=== PATIENT | female | born 1970 | race Two or more races ===

== ENCOUNTER 2018-06-03 12:33 | Emergency (ER) | payer BC, OTHER ==
[~2018-06-03] VITALS: Ht 162.6 cm; Wt 81.0 kg
[~2018-06-03 12:33] MED LIST: ALPR0.25 PO; CHOL200052 PO; METF500T17 PO; SIMV40TA PO
[2018-06-03] MEDS ORDERED: MORPHINE SULFATE 4 MG/ML, 1ML ONE (13:29)
[2018-06-03] MEDS ORDERED: ONDANSETRON ODT 4 MG ONE (13:29)
[2018-06-03] MEDS ORDERED: MORPHINE SULFATE 4 MG/ML, 1ML IVPush PRN (13:30)
[2018-06-03] MEDS ORDERED: SODIUM CHLORIDE FLUSH 10ML SYR IVF ONE (13:30)
[2018-06-03] MEDS ORDERED: ONDANSETRON ODT 4 MG PO ONE (13:30)
[2018-06-03 13:34] LABS: BASOPHILS # (AUTO) 0.03 x10^3/uL (0-0.1); BASOPHILS % (AUTO) 1 % (0-1); EOSINOPHILS # (AUTO) 0.25 x10^3/uL (0-0.4); EOSINOPHILS % (AUTO) 4 % (1-7); LYMPHOCYTES # (AUTO) 2.31 x10^3/uL (1-3.4); LYMPHOCYTES % (AUTO) 35 % (22-44); MD NO; MEAN CORPUSCULAR HEMOGLOBIN 30.8 pg (27.0-34.8); MEAN CORPUSCULAR HGB CONC 33.9 g/dL (32.4-35.8); MEAN CORPUSCULAR VOLUME 90.8 fL (80-100); MEAN PLATELET VOLUME 8.2 fL (7.4-10.4); MONOCYTES # (AUTO) 0.45 x10^3/uL (0.2-0.8); MONOCYTES % (AUTO) 7 % (2-9); NEUTROPHILS # (AUTO) 3.59 x10^3/uL (1.8-6.8); NEUTROPHILS % (AUTO) 54 % (42-75); PLATELET COUNT 277 x10^3/uL (130-400); RED BLOOD COUNT 4.09 x10^6/uL (3.82-5.3); RED CELL DISTRIBUTION WIDTH 13.9 % (9.6-15.2)
[2018-06-03 13:46] LABS: TROPONIN I < 0.015 ng/mL (0.000-0.045)
[2018-06-03 14:47] VITALS: BP 121/80
[2018-06-03 14:48] LABS: ALANINE AMINOTRANSFERASE 23 U/L (12-78); ALBUMIN 3.6 g/dL (3.4-5.0); ANION GAP 10 mmol/L (5-15); CALCIUM 8.6 mg/dL (8.5-10.1); CHLORIDE 110 mmol/L (98-107)
[2018-06-03 14:50] LABS: ALKALINE PHOSPHATASE 52 U/L (45-117); BILIRUBIN,TOTAL 0.3 mg/dL (0.2-1.0); TOTAL PROTEIN 7.1 g/dL (6.4-8.2)
== END 2018-06-03 15:55 | disposition home or self-care (01) ==
LOC: ED 14:42
DX: I83.92 Asymptomatic varicose veins of left lower extremity (principal); R07.89 Other chest pain
CPT/HCPCS: 36415; 71045; 80053; 84484; 85025; 85379; 93005; 93971; 96374; 99285; Q0162

== ENCOUNTER 2018-06-10 21:30 | Emergency (ER) | payer BC ==
[~2018-06-10] VITALS: Ht 162.6 cm; Wt 82.1 kg
[2018-06-10 21:36] VITALS: BP 126/86
[2018-06-10] MEDS ORDERED: DIPH,PERTUSS(ACELL),TET VAC/PF 0.5 ML IM-VACC ONE ×2 (22:00→22:01)
[2018-06-10] MEDS ORDERED: ACETAMINOPHEN 325 MG TABLET ONE (22:01)
[2018-06-10] MEDS ORDERED: ACETAMINOPHEN 325 MG TABLET PO ONE (22:30)
[2018-06-10] MEDS ORDERED: BACITRACIN ZINC OINT 500U/GM, 0.9 GM ONE (22:38)
== END 2018-06-10 22:48 | disposition home or self-care (01) ==
LOC: ED 22:20
DX: S50.871A Other superficial bite of right forearm, initial encounter (principal); E78.5 Hyperlipidemia, unspecified; Z86.718 Personal history of other venous thrombosis and embolism; W54.0XXA Bitten by dog, initial encounter; Y93.89 Activity, other specified; Y92.098 Other place in other non-institutional residence as the place of occurrence of the external cause; Y99.8 Other external cause status
CPT/HCPCS: 90471; 90715; 99283